=== PATIENT | female | born 1970 | race Caucasian/White ===

== ENCOUNTER 2016-04-28 16:29 | Emergency (ER) | payer BC, OTHER ==
[~2016-04-28] VITALS: Ht 160 cm; Wt 74.8 kg
[2016-04-28] MEDS ORDERED: IV NORMAL SALINE 1000ML BAG 1,000 ML IV SCH (17:38)
[2016-04-28] MEDS ORDERED: ONDANSETRON PF 4 MG/2 ML VIAL. IV ONE (17:45)
[2016-04-28] MEDS: FENTANYL PF 100 MCG/2 ML VIAL. IV PRN ×3 (17:48→22:48)
[2016-04-28 17:59] LABS: BASO # 0.1 x10^3/uL (0.0-0.2); BASO % 1 % (0-3); EOS % 5 % (0-3); HEMATOCRIT 40.1 % (36.0-47.0); HEMOGLOBIN 13.9 g/dL (12.0-15.5); LYMPH # 1.5 x10^3/uL (1.0-4.8); LYMPH % 20 % (24-48); MEAN CORPUSCULAR HEMOGLOBIN 32 pg (25-35); MEAN CORPUSCULAR HGB CONC 35 g/dL (31-37); MEAN CORPUSCULAR VOLUME 93 fL (79-100); MONO % 7 % (0-9); NEUT % 69 % (31-73); PLATELET COUNT 250 x10^3/uL (140-400); WHITE BLOOD COUNT 7.8 x10^3/uL (4.0-11.0)
[2016-04-28 18:00] VITALS: BP 103/51
[2016-04-28] MEDS ORDERED: IOHEXOL 300 MG/ML 75 ML VIAL IV ONE (18:00)
[2016-04-28 18:02] LABS: NEG OBC UR NEG; POS OBC UR POS
[2016-04-28 18:03] LABS: CALCIUM 8.5 mg/dL (8.5-10.1); CREATININE 0.6 mg/dL (0.6-1.0); GFR 106.7; POTASSIUM 4.3 mmol/L (3.5-5.1)
[2016-04-28 18:06] LABS: BILIRUBIN,URINE NEGATIVE (NEG); GLUCOSE,URINE NEGATIVE (NEG); NITRITE,URINE NEGATIVE (NEG); PH,URINE 5.5; PROTEIN,URINE NEGATIVE (NEG-TRACE); UROBILINOGEN,URINE 0.2 mg/dL (0.2 mg/dL)
[2016-04-28 18:09] LABS: ALBUMIN 4.1 g/dL (3.4-5.0); ALBUMIN/GLOBULIN RATIO 1.1 (1.0-1.7); TOTAL BILIRUBIN 0.3 mg/dL (0.2-1.0); TOTAL PROTEIN 7.8 g/dL (6.4-8.2)
[2016-04-28] MEDS ORDERED: CONTRAST GIVEN MC PRN (18:15)
[2016-04-28 18:19] LABS: BACTERIA,URINE 0 /HPF (0-FEW); RBC,URINE OCC /HPF (0-2); SQUAMOUS EPITHELIAL CELL,UR FEW /LPF; WBC,URINE 0 /HPF (0-4)
--- NOTE | 2016-04-28 18:40 | PHYS DOC ---
Past Medical History Past Medical History: Hypothyroid Past Surgical History: Appendectomy, Cholecystectomy, , Other Additional Past Surgical Histo: hernia Alcohol Use: Occasionally Drug Use: None Adult General Chief Complaint Chief Complaint: ABDOMINAL PAIN HPI HPI Patient is a 46 year old female who presents with severe lower abdominal pain. Patient states her pain started approximately 1 hour prior to arrival. Patient states that the symptoms came on suddenly. On my interview, patient rates her pain currently as 9 out of 10. Patient states that the pain as sharp and cramping. Patient states that it originally started in the middle of her abdomen and has since migrated down to her pelvis. Patient denies radiation of pain into the flanks. Patient has not had any associated fevers, dysuria, nausea , vomiting, or diarrhea. Patient has not taken any medications to help with her symptoms. Patient denies history of inflammatory bowel disease. Patient has had history of cholecystectomy and appendectomy. Review of Systems Review of Systems Constitutional: Denies fever or chills [] Eyes: Denies change in visual acuity, redness, or eye pain [] HENT: Denies nasal congestion or sore throat [] Respiratory: Denies cough or shortness of breath [] Cardiovascular: No additional information not addressed in HPI [] GI: Abdominal pain, denies nausea, vomiting, bloody stools or diarrhea [] : Denies dysuria or hematuria [] Musculoskeletal: Denies back pain or joint pain [] Integument: Denies rash or skin lesions [] Neurologic: Denies headache, focal weakness or sensory changes [] Endocrine: Denies polyuria or polydipsia [] Current Medications Current Medications Current Medications Medications (Trade) Dose Ordered Sig/[facility] Start Time Stop Time Status Last Admin Dose Admin Fentanyl Citrate 50 mcg 50 mcg PRN Q15MIN PRN 04/28/16 17:45 04/29/16 17:44 04/28/16 20:29 50 MCG Info (Do NOT chart on this entry -- for MONITORING) 1 each PRN DAILY PRN 04/28/16 18:15 04/30/16 18:14 Iohexol (Omnipaque 300 Mg/ml) 75 ml 1X ONCE 04/28/16 18:00 04/28/16 18:02 DC 04/28/16 18:19 75 ML Ondansetron HCl (Zofran) 4 mg 1X ONCE 04/28/16 17:45 04/28/16 17:46 DC 04/28/16 17:48 4 MG Sodium Chloride (Iv Sodium Chloride 0.9% 1000ml Bag) 1,000 ml @ 1,000 mls/hr Q1H 04/28/16 17:38 04/28/16 18:37 DC 04/28/16 17:48 1,000 MLS/HR Allergies Allergies Allergies Coded Allergies Type Severity Reaction Last Updated Verified No Known Drug Allergies 04/02/15 No Physical Exam Physical Exam Constitutional: Alert, afebrile, appears in moderate discomfort. [] HENT: Normocephalic, atraumatic, bilateral external ears normal, oropharynx moist, no oral exudates, nose normal. [] Eyes: PERRLA, EOMI, conjunctiva normal, no discharge. [] Neck: Normal range of motion, no tenderness, supple, no stridor. [] Cardiovascular:Heart rate regular rhythm, no murmur [] Lungs & Thorax: Bilateral breath sounds clear to auscultation [] Abdomen: Bowel sounds normal, soft, suprapubic tenderness to palpation with guarding, no rebound tenderness, no masses, no pulsatile masses. [] Skin: Warm, dry, no erythema, no rash. [] Back: No tenderness, no CVA tenderness. [] Extremities: No tenderness, no cyanosis, no clubbing, ROM intact, no edema. [] Neurologic: Alert and oriented X 3, normal motor function, normal sensory function, no focal deficits noted. [] Current Patient Data Vital Signs Vital Signs Date Time Temp Pulse Resp B/P Pulse Ox O2 Delivery O2 Flow Rate FiO2 04/28/16 20:29 18 Room Air 04/28/16 18:00 95 103/51 98 04/28/16 17:10 98.3 98.3 Lab Values Laboratory Tests Test 04/28/16 17:14 04/28/16 17:50 White Blood Count 7.8x10^3/uL (4.0-11.0) Red Blood Count 4.30x10^6/uL (3.50-5.40) Hemoglobin 13.9g/dL (12.0-15.5) Hematocrit 40.1% (36.0-47.0) Mean Corpuscular Volume 93fL (79-100) Mean Corpuscular Hemoglobin 32pg (25-35) Mean Corpuscular Hemoglobin Concent 35g/dL (31-37) Red Cell Distribution Width 13.0% (11.5-14.5) Platelet Count 250x10^3/uL (140-400) Neutrophils (%) (Auto) 69% (31-73) Lymphocytes (%) (Auto) 20% (24-48) L Monocytes (%) (Auto) 7% (0-9) Eosinophils (%) (Auto) 5% (0-3) H Basophils (%) (Auto) 1% (0-3) Neutrophils # (Auto) 5.3x10^3uL (1.8-7.7) Lymphocytes # (Auto) 1.5x10^3/uL (1.0-4.8) Monocytes # (Auto) 0.5x10^3/uL (0.0-1.1) Eosinophils # (Auto) 0.4x10^3/uL (0.0-0.7) Basophils # (Auto) 0.1x10^3/uL (0.0-0.2) Sodium Level 142mmol/L (136-145) Potassium Level 4.3mmol/L (3.5-5.1) Chloride Level 105mmol/L (98-107) Carbon Dioxide Level 25mmol/L (21-32) Anion Gap 12 (6-14) Blood Urea Nitrogen 11mg/dL (7-20) Creatinine 0.6mg/dL (0.6-1.0) Estimated GFR (Cockcroft-Gault) 106.7 BUN/Creatinine Ratio 18 (6-20) Glucose Level 105mg/dL (70-99) H Calcium Level 8.5mg/dL (8.5-10.1) Total Bilirubin 0.3mg/dL (0.2-1.0) Aspartate Amino Transferase (AST) 17U/L (15-37) Alanine Aminotransferase (ALT) 21U/L (14-59) Alkaline Phosphatase 48U/L (46-116) Total Protein 7.8g/dL (6.4-8.2) Albumin 4.1g/dL (3.4-5.0) Albumin/Globulin Ratio 1.1 (1.0-1.7) Lipase 210U/L (73-393) Urine Collection Type Unknown Urine Color Yellow Urine Clarity Clear Urine pH 5.5 Urine Specific [place] <=1.005 Urine Protein Negativemg/dL (NEG-TRACE) Urine Glucose (UA) Negativemg/dL (NEG) Urine Ketones (Stick) Negativemg/dL (NEG) Urine Blood Small (NEG) Urine Nitrite Negative (NEG) Urine Bilirubin Negative (NEG) Urine Urobilinogen Dipstick 0.2mg/dL (0.2 mg/dL) Urine Leukocyte Esterase Negative (NEG) Urine RBC Occ/HPF (0-2) Urine WBC 0/HPF (0-4) Urine Squamous Epithelial Cells Few/LPF Urine Bacteria 0/HPF (0-FEW) Urine Test Negative (NEG) Laboratory Tests 04/28/16 17:14 Laboratory Tests 04/28/16 17:14 EKG EKG Interpreted by me: Heart rate 91, sinus rhythm, normal intervals, normal axis, no acute ST/T-wave abnormalities present [] Radiology/Procedures Radiology/Procedures [facility] [address] [place] [address] IMAGING REPORT Signed PATIENT: TAY POLLOCK ACCOUNT: [id number] : 1970 LOCATION: ER AGE: 46 SEX: F EXAM STATUS: REG ER ORD. PHYSICIAN: THA DEAN MD REASON: severe pelvic pain PROCEDURE: PELVIS W/TV Pelvic ultrasound with transvaginal Indication: Abnormal CT and right adnexal pain. Transabdominal and transvaginal pelvic sonography was performed. The uterus measures 8.9 x 5.6 centimeters. The uterus appears retroverted. The endometrium is 9 millimeters in thickness. No uterine mass is identified. There are cervical nabothian cysts present. The left ovary measures 2.5 x 2.4 x 1.7 centimeters and is unremarkable and shows normal blood flow. The right ovary is enlarged at 4.7 x 3.0 x 2.5 centimeters. There is blood flow to the right ovary. There is a questionable tubular structure in the right adnexa with internal echoes, perhaps representing a hydrosalpinx or pyosalpinx. Minimal simple free fluid in the pelvis is noted. No other abnormalities are seen. Impression: Mild right ovarian enlargement but normal blood flow to the right ovary is seen. There is a slightly prominent tubular fluid-filled structure in the right adnexa, perhaps hydrosalpinx or pyosalpinx. No other significant abnormality is seen. Electronically signed by: Jey Barr MD (Apr 28, 2016 21:07:44) DICTATED and SIGNED BY: JEY BARR MD DATE: 04/28/162106 CC: THA DEAN MD; YOSEF MAHMOOD ~ [facility] [address] [place] [address] IMAGING REPORT Signed PATIENT: TAY POLLOCK ACCOUNT: [id number] : 1970 LOCATION: ER AGE: 46 SEX: F EXAM STATUS: REG ER ORD. PHYSICIAN: THA DEAN MD REASON: severe lower abdominal pain with guarding PROCEDURE: ABD PELV W/ IV CONTRAST ONLY PROCEDURE CT abdomen pelvis with contrast. HISTORY Severe abdominal pain since TECHNIQUE After administration of intravenous contrast, CT imaging was performed of the abdomen and pelvis, multiplanar reconstruction images submitted. No oral contrast was given as per request. Exposure: One or more of the following individualized dose reduction techniques were utilized for this exam: 1. Automated exposure control. 2. Adjustment of the mA and/or kV according to patient size. 3. Use of iterative reconstruction technique. Contrast: 75 cc Omnipaque 300 COMPARISON January 17, 2008 FINDINGS There is no significant abnormality of the limited visualized lung bases. No focal abnormality is identified of the liver, spleen, pancreas. There has been cholecystectomy. Both kidneys enhance, no hydronephrosis. There is very small quantity of free fluid along the margin of the inferior liver. The appendix has likely been removed. Accurate evaluation of bowel is limited without oral contrast. Bowel is not significantly dilated to suggest obstruction. No free air is identified. There is mild distention of urinary bladder. There is apparently some fluid in the endometrial cavity, also fullness of the right adnexal although difficult identify discrete margins of a cyst. There is some gas distention of the rectum. IMPRESSION 1. There is a small quantity of nonspecific fluid along the inferior margin of the right liver. Etiology is uncertain. There are clips in the right lower quadrant, likely previous appendectomy for which correlation with clinical history advised. There is fullness of the right adnexal region although otherwise difficult to characterize, discrete cyst not confidently seen. There is some nonspecific fluid in the endometrial cavity. 2. There is mild distention of urinary bladder. 3. There has been cholecystectomy. Electronically signed by: Nadeem Martino MD (Apr 28, 2016 18:40:49) DICTATED and SIGNED BY: YADIAR MARTINO MD DATE: 04/28/161839 CC: THA DEAN MD; YOSEF MAHMOOD ~ [] Course & Med Decision Making Course & Med Decision Making Pertinent Labs and Imaging studies reviewed. (See chart for details) The patient was given IV fluids, Zofran, and fentanyl. Patient had improvement in pain symptoms though they remain present at this time. The etiology of patient's pain is somewhat unclear at this time. The patient's ultrasound showed suggestion of mild prominence to the right ovary and tube with suggestion of possibly hydrosalpinx or pyosalpinx. The patient however does not display an elevated white count, any evidence of fever, or any other vital sign abnormality at this time. Due to the patient's symptoms of pelvic pain with recurrence, the patient was offered admission to the hospital for continued control of symptoms. After careful consideration, the patient states that she does not want to be admitted to the hospital and would rather continue treatment at home and return to the emergency department for any worsening symptoms. I do not feel this is unreasonable as the patient has normal vital signs and normal lab work at this time. The patient states that she will follow- up with her SURGICAL MANAGER physician, Dr. Thrasher, located at [facility]. Recommended follow-up within 2 days and return to the emergency department for any worsening symptoms. Patient voiced understanding and in agreement with treatment plan. Dragon Disclaimer Dragon Disclaimer This electronic medical record was generated, in whole or in part, using a voice recognition dictation system. Departure Departure Impression: Primary Impression: Pelvic pain Disposition: HOME, SELF-CARE Condition: IMPROVED Referrals: YOSEF MAHMOOD (PCP) Patient Instructions: Abdominal Pain Additional Instructions: Your workup including CT imaging of the abdomen and pelvis and ultrasound imaging of the pelvis did not show an obvious cause for your pelvic pain. Follow -up with Dr. Thrasher of SURGICAL MANAGER in the next 2 days. Return to the emergency department for any worsening symptoms. Scripts Ondansetron (Zofran Odt)4 Mg Tab.rapdis4 Mg PO Q8HRS PRN NAUSEA/VOMITING #15 TAB Prov:THA DEAN MD 04/28/16 Hydrocodone/[place]ap 5-325 ([place] 5-325 Tablet)1 Each Tablet1-2 Tab PO Q4-6HRS PRN PAIN #20 TAB Prov:HTA DEAN MD 04/28/16 THA DEAN MD Apr 28, 2016 18:40
--- NOTE | 2016-04-28 21:09 | RAD ---
Pelvic ultrasound with transvaginal Indication: Abnormal CT and right adnexal pain. Transabdominal and transvaginal pelvic sonography was performed. The uterus measures 8.9 x 5.6 centimeters. The uterus appears retroverted. The endometrium is 9 millimeters in thickness. No uterine mass is identified. There are cervical nabothian cysts present. The left ovary measures 2.5 x 2.4 x 1.7 centimeters and is unremarkable and shows normal blood flow. The right ovary is enlarged at 4.7 x 3.0 x 2.5 centimeters. There is blood flow to the right ovary. There is a questionable tubular structure in the right adnexa with internal echoes, perhaps representing a hydrosalpinx or pyosalpinx. Minimal simple free fluid in the pelvis is noted. No other abnormalities are seen. Impression: Mild right ovarian enlargement but normal blood flow to the right ovary is seen. There is a slightly prominent tubular fluid-filled structure in the right adnexa, perhaps hydrosalpinx or pyosalpinx. No other significant abnormality is seen. Electronically signed by: Jey Barr MD (Apr 28, 2016 21:07:44)
[2016-04-28] MEDS ORDERED: ONDA4TAB10 PO (22:05)
[2016-04-28] MEDS ORDERED: HYDR-971 PO (22:05)
--- NOTE | 2016-04-29 05:58 | EKG ---
[facility] [address] [place] [address] Test Date: 2016-04-28 Test Time: 17:47:13 Pat Name: TAY POLLOCK Department: Room: Gender: F Kitchen Aide: : 1970 Requested By: THA DEAN Order Number: [id number] Reading MD: Measurements Intervals [place] Rate: 91 P: 41 CO: 148 QRS: 46 QRSD: 82 T: 59 QT: 330 QTc: 407 Interpretive Statements SINUS RHYTHM RI6.01 Unconfirmed report No previous ECG available for comparison
== END 2016-04-28 22:55 | disposition home or self-care (01) ==
LOC: ER 16:29
DX: R10.2 Pelvic and perineal pain (principal); E03.9 Hypothyroidism, unspecified; Z90.49 Acquired absence of other specified parts of digestive tract
CPT/HCPCS: 36415; 74177; 76830; 76856; 80053; 81001; 81025; 83690; 85027; 93005; 96361; 96374; 96375; 96376; 99285; J2405; J3010; J7030; Q9967